=== PATIENT | male | born 1955 | race Caucasian/White ===

== ENCOUNTER 2022-08-06 05:46 | Outpatient (CLI) | payer MEDICARE, OTHER ==
[~2022-08-06] VITALS: Ht 170.2 cm; Wt 86.2 kg
[2022-08-06] MEDS ORDERED: ZINC220T3 PO (13:52)
[2022-08-06] MEDS ORDERED: LISI10TA25 PO (13:52)
[2022-08-06] MEDS ORDERED: NF-VITD400 PO (13:52)
[2022-08-06] MEDS ORDERED: TMSL.4C PO (13:52)
[2022-08-06] MEDS ORDERED: MULT-593 PO (13:52)
[2022-08-06] MEDS ORDERED: SITA100T12 PO (13:52)
[2022-08-06] MEDS ORDERED: AMLO-251 PO (13:52)
== END 2022-08-06 13:55 | disposition home or self-care (01) ==
LOC: PREOP 05:46
PROVIDERS: ATTEND Surgery
DX: Z01.818 Encounter for other preprocedural examination (principal)

== ENCOUNTER 2022-08-18 08:25 | Day surgery (SDC) | payer MEDICARE, OTHER ==
[~2022-08-18] VITALS: Ht 170 cm; Wt 86.2 kg
[~2022-08-18 08:25] MED LIST: AMLO-251 PO; LISI10TA25 PO; MULT-593 PO; NF-VITD400 PO; SITA100T12 PO; TMSL.4C PO; ZINC220T3 PO
[2022-08-18] MEDS ORDERED: LACTATED RINGERS 1,000 ML IV STA (08:28)
[2022-08-18 08:43] VITALS: BP 157/83
[2022-08-18] MEDS ORDERED: MIDAZOLAM 2 MG/2 ML (VERSED) VIAL ONE (08:53)
[2022-08-18] MEDS ORDERED: PROPOFOL INJECTION 50 ML IV ONE (08:53)
--- NOTE | 2022-08-18 08:54 | Progress Note-Pre Operative ---
Pre-Operative Progress Note Date of Available H&P: Jul 22, 2022 Date H&P Reviewed: August 18, 2022 Time H&P Reviewed: 08:51 History & Physical: H&P Reviewed, Patient Examed, No changes noted Pre-Operative Diagnosis: screening colonoscopy EMILIANO FITZPATRICK DO August 18, 2022 08:54
[2022-08-18 09:29] VITALS: BP 107/60
--- NOTE | 2022-08-18 09:30 | Progress Note-Post Operative ---
Post-Operative Progess Note Surgeon (s)/Finance Specialist (s) Surgeon EMILIANO FITZPATRICK DO Finance Specialist: HIPOLITO Aguiar student Pre-Operative Diagnosis screening colonoscopy Post-Operative Diagnosis Polyp diverticula int hemorrhoids Procedure & Operative Findings Date of Procedure 08/18/22 Procedure Performed/Findings Colonoscopy with hot biopsy PROCEDURE NOTE: After informed consent was obtained, the patient was brought to the endoscopy suite, placed in bed in left lateral decubitus position. He was administered IV sedation by the SOFTWARE QUALITY ASSURANCE SPECIALIST who then monitored his vitals the entire time, heart rate, blood pressure and pulse ox and the scope was inserted, pushed all the way to about 150 cm and pushed into the cecum, took a picture of appendiceal orifice and noted the ileocecal valve. Then slowly withdrew the scope insufflating to look circumferentially at the nixon starting in the cecum and up the ascending colon. I found a flat polyp here that I elected to do a hot biopsy to send to pathology. Continued to the hepatic flexure, then down the transverse colon to the splenic flexure, into the descending colon and down into the sigmoid. Finally into the rectal vault and retroflexed the scope; took a picture of the internal hemorrhoids. The patient tolerated the procedure. He was recovered in endoscopy suite. Recommended for repeat colonoscopy in 5 years. Anesthesia Type IV sedation by SOFTWARE QUALITY ASSURANCE SPECIALIST Estimated Blood Loss Estimated blood loss (mL): scant Specimens/Packing Specimens Removed asc colon polyp EMILIANO FITZPATRICK DO August 18, 2022 09:30
--- NOTE | 2022-08-18 09:31 | Endoscopy Discharge Instruct ---
Endo Procedure/Findings Findings 1.: Polyp 2.: Diverticulosis 3.: Internal Hemorrhoids Discharge Instructions - Activity: You might feel a little sleepy until tomorrow. This is due to the medicine you received to relax you. Until tomorrow, you should: NOT drive a car, operate machinery or power tools. NOT drink any alcoholic beverages. NOT make any important decisions or sign importortant papers. Do not return to work until tomorrow, unless otherwise instructed. Resume previous activities tomorrow. Diet: Start by taking liquids. If you tolerate liquids, advance to solid food. 1.: Colonscopy in 5 years Notify Physician - If you experience excessive bleeding, unusual abdominal pain, fever, or chest pain, contact your doctor immediately. Follow-Up: Other Follow up in one week EMILIANO FITZPATRICK DO August 18, 2022 09:31
[2022-08-18 09:34] VITALS: BP 105/57
[2022-08-18 09:39] VITALS: BP 108/59
[2022-08-18 09:45] VITALS: BP 109/61
[2022-08-18 10:22] VITALS: BP 109/61
--- NOTE | 2022-08-18 12:56 | Anesthesia-General Post-Op ---
MAC Patient Condition Mental Status/LOC: Same as Preop Cardiovascular: Satisfactory Nausea/Vomiting: Absent Respiratory: Satisfactory Pain: Controlled Complications: Absent Post Op Complications Complications None Follow Up Care/Instructions Patient Instructions None needed. Anesthesiology Discharge Order Discharge Order Patient is doing well, no complaints, stable vital signs, no apparent adverse anesthesia problems. No complications reported per nursing. BENNIE HENLEY CRNA August 18, 2022 12:56
== END 2022-08-18 10:32 | disposition home or self-care (01) ==
LOC: ENDO 08:25
PROVIDERS: ATTEND Surgery
DX: Z12.11 Encounter for screening for malignant neoplasm of colon (principal); D12.2 Benign neoplasm of ascending colon; K57.30 Diverticulosis of large intestine without perforation or abscess without bleeding; K64.8 Other hemorrhoids; E11.9 Type 2 diabetes mellitus without complications; Z79.84 Long term (current) use of oral hypoglycemic drugs
CPT/HCPCS: 88305